=== PATIENT | male | born 1955 | race Hispanic/Latino ===

== ENCOUNTER 2024-02-25 06:43 | Day surgery (SDC) | payer OTHER ==
[2024-02-23 12:09] VITALS: BP 162/80; PULSE 68; RESP 16
[2024-02-23 12:10] LABS: BASOPHILS # (AUTO) 0.03 K/uL (0.00-0.20); BASOPHILS % (AUTO) 0.5 % (0.0-5.0); EOSINOPHILS # (AUTO) 0.11 K/uL (0.00-0.70); EOSINOPHILS % (AUTO) 1.8 % (0.0-8.0); HEMATOCRIT 40.9 % (42-54); IMMATURE GRANULOCYTE ABSOLUTE 0.04 K/uL (0-1); LYMPHOCYTES # (AUTO) 1.1 K/uL (1.0-4.8); LYMPHOCYTES % (AUTO) 17.9 % (21.0-51.0); MEAN CORPUSCULAR HEMOGLOBIN 27.4 pg (27.0-33.0); MEAN CORPUSCULAR VOLUME 85.6 fL (79-99); MONOCYTES # (AUTO) 0.5 K/uL (0.1-1.0); MONOCYTES % (AUTO) 7.6 % (3.0-13.0); NEUTROPHILS # (AUTO) 4.4 K/uL (1.8-7.7); NEUTROPHILS % (AUTO) 71.6 % (40.0-77.0); PLATELET COUNT (AUTO) 194 K/uL (130-400); RED BLOOD CELL COUNT(AUTO) 4.78 MIL/uL (4.50-6.20); RED CELL DISTRIBUTION WIDTH 14.2 % (11.0-15.5); WHITE BLOOD COUNT (AUTO) 6.2 K/uL (4.8-10.8)
[2024-02-23 12:42] LABS: POTASSIUM 3.7 mmol/L (3.5-5.1)
[2024-02-25] VITALS (18 sets, daily range): BP systolic 119–148; BP diastolic 63–78; PULSE 56–84; RESP 14–18
[~2024-02-25] VITALS: Ht 165.1 cm; Wt 93.3 kg
[~2024-02-25 06:43] MED LIST: AMLO2.5T4 PO; TADA5TAB13 PO; TAMS-1 PO
[2024-02-25] MEDS ORDERED: CEFTRIAXONE 1G VIAL ONE (06:53)
[2024-02-25] MEDS: LACTATED RINGERS 1000ML 1,000 ML IV ONE (07:20)
[2024-02-25] MEDS ORDERED: DEXAMETHASONE SOD PHOSPHATE 10MG/ML 1ML VIAL ONE (08:23)
[2024-02-25] MEDS ORDERED: LIDOCAINE PF 100MG/5ML (2%) SYRINGE 5ML ONE (08:23)
[2024-02-25] MEDS ORDERED: ROCURONIUM BROMIDE 10MG/1ML 5ML VL ONE ×2 (08:24→09:29)
[2024-02-25] MEDS ORDERED: PROPOFOL 10 MG/ML 20ML VIAL IV ONE (08:24)
[2024-02-25] MEDS ORDERED: NEOSTIGMINE METHYLSULFATE 1MG/ML IV ONE (08:24)
[2024-02-25] MEDS ORDERED: ONDANSETRON 4MG INJ ONE (08:24)
[2024-02-25] MEDS ORDERED: GLYCOPYRROLATE 0.2 MG/ML 5 ML VIAL ONE (08:24)
[2024-02-25] MEDS ORDERED: FENTANYL CITRATE PF 50 MCG/1 ML 2ML VIAL ONE ×2 (08:25→09:23)
[2024-02-25] MEDS: CEFTRIAXONE 1G VIAL IVPB ONE (08:26)
[2024-02-25] MEDS ORDERED: EPHEDRINE SULFATE 50 MG/ML AMPULE ONE (09:08)
[2024-02-25] MEDS ORDERED: MEPERIDINE-PF 25 MG/ML SYG ONE (09:15)
[2024-02-25] MEDS ORDERED: SUGAMMADEX SODIUM 200 MG/2 ML VIAL IV ONE (09:42)
[2024-02-25] MEDS: PHENAZOPYRIDINE HCL 200 MG TABLET PO ONE (11:55)
== END 2024-02-25 12:00 | disposition home or self-care (01) ==
LOC: DAH 06:43
PROVIDERS: ATTEND Urology
DX: N21.0 Calculus in bladder (principal); N40.1 Benign prostatic hyperplasia with lower urinary tract symptoms; I10 Essential (primary) hypertension; K21.9 Gastro-esophageal reflux disease without esophagitis; Z79.899 Other long term (current) drug therapy
CPT/HCPCS: 80048; 85025; 84154; 84153; 36415 ×2; 93005; 52318; 82360; A4663; J7120 ×2; J3010 ×2; J1100; J3490 ×4; J2001; J0696 ×2; J2704; J2405; J2710; J2175; A4358; A4215; A4223; A4213; A4222; A4221